=== PATIENT | male | born 1935 | race Caucasian/White ===

== ENCOUNTER 2017-10-21 06:48 | Outpatient (CLI) | payer MEDICARE, BC ==
[~2017-10-21] VITALS: Ht 167.6 cm; Wt 98.0 kg
[~2017-10-21 06:48] MED LIST: ADV50250 IH; ALBU18HF2 IH; ALD25T PO; ALLO100T PO; ATOR10TA87 PO; ATR0.5NEB IH; BENA20TA82 PO; DABI150C PO; FURO80TA87 PO; IND25C PO; POTA20TA84 PO; PRED20TA PO; SOTA80TA73 PO
[2017-10-21 07:26] LABS: TOTAL HEMOGLOBIN 14.1 G/dl (14.0-18.0)
[2017-10-21] MEDS ORDERED: albuterol 2.5 MG/3 ML nebule NEB ONE (07:40)
== END 2017-10-21 23:59 | disposition home or self-care (01) ==
LOC: RT 06:48
PROVIDERS: ATTEND Internal Medicine Pulmonary Disease
DX: J44.9 Chronic obstructive pulmonary disease, unspecified (principal); I10 Essential (primary) hypertension; Z88.0 Allergy status to penicillin; Z87.891 Personal history of nicotine dependence; Z79.899 Other long term (current) drug therapy
CPT/HCPCS: 85018; 94060; 94727; 94729; 94760; A6222; A6446; J7030

== ENCOUNTER 2017-11-12 08:33 | Outpatient (CLI) | payer MEDICARE, BC | END 2017-11-12 23:59 | disposition home or self-care (01) | LOC: RT 08:33 | PROVIDERS: ATTEND Internal Medicine Pulmonary Disease | DX: J44.9 Chronic obstructive pulmonary disease, unspecified (principal); I10 Essential (primary) hypertension; Z87.891 Personal history of nicotine dependence; Z85.828 Personal history of other malignant neoplasm of skin | CPT/HCPCS: 94618 ==

== ENCOUNTER 2018-03-31 10:38 | Emergency (ER) | payer MEDICARE, BC ==
[~2018-03-31] VITALS: Ht 167.6 cm; Wt 99.0 kg
[~2018-03-31 10:38] MED LIST changes: -ALD25T PO; +AMLO2.5T2 PO; -ATR0.5NEB IH; +METF500T PO; +MONT10TA21 PO; -POTA20TA84 PO; -PRED20TA PO
[2018-03-31 11:19] LABS: BASOPHILS # (AUTO) 0.1 X10'3 (0-0.2); BASOPHILS % (AUTO) 0.7 % (0-1); EOSINOPHILS # (AUTO) 0.1 X10'3 (0-0.9); EOSINOPHILS % (AUTO) 1.2 % (0-6); HEMATOCRIT 37.6 % (42.0-52.0); HEMOGLOBIN 12.7 g/dl (14.0-17.9); LYMPHOCYTES # (AUTO) 1.1 X10'3 (1.1-4.8); LYMPHOCYTES % (AUTO) 12.3 % (21-51); MEAN CORPUSCULAR HGB CONC 33.8 g/dL (33.0-36.5); MEAN CORPUSCULAR VOLUME 97.4 FL (78-98); MEAN PLATELET VOLUME 6.3 FL (7.4-10.4); MONOCYTES % (AUTO) 10.8 % (2-12); NEUTROPHILS # (AUTO) 6.9 X10'3 (1.8-7.7); PLATELET COUNT 216 X10'3 (140-440); RED BLOOD COUNT 3.86 X10'6 (4.70-6.10); RED CELL DISTRIBUTION WIDTH 14.7 % (11.5-14.5); WHITE BLOOD COUNT 9.2 X10'3 (4.5-11.0)
[2018-03-31 11:34] LABS: INR 1.5 INR; PARTIAL THROMBOPLASTIN TIME 49 SECONDS (22-32); PROTHROMBIN TIME 14.7 SECONDS (9.0-12.0)
[2018-03-31 11:35] LABS: ALANINE AMINOTRANSFERASE 25 U/L (12-78); ALBUMIN 3.4 G/DL (3.4-5.0); ALBUMIN/GLOBULIN RATIO 0.8 (1.1-1.5); ALKALINE PHOSPHATASE 106 IU/L (46-116); ANION GAP 9 (8-16); ASPARTATE AMINO TRANSFERASE 23 U/L (10-37); BILIRUBIN,TOTAL 1.1 MG/DL (0.1-1.0); BLOOD UREA NITROGEN 19 MG/DL (7-18); BUN/CREATININE RATIO 18.4 (5.4-32.0); CALCIUM 9.1 MG/DL (8.5-10.1); CHLORIDE 92 MMOL/L (99-107); CREATININE 1.03 MG/DL (0.60-1.10); GLUCOSE 145 MG/DL (70-104); POTASSIUM 3.4 MMOL/L (3.5-5.1); SODIUM 134 MMOL/L (135-145); TOTAL CARBON DIOXIDE 33.3 MMOL/L (24-32); TOTAL PROTEIN 7.6 G/DL (6.4-8.2); eGFR 69 ML/MIN
--- NOTE | 2018-03-31 12:14 | NUR ---
ASSUMED CARE OF PT FROM KARINA BUNDY
--- NOTE | 2018-03-31 13:10 | NUR ---
PT IS RESTING QUIETLY ON CHAIR, FAMILY AT BEDSIDE, WAITING FOR 2ND TROPONIN LEVEL, LEFT LOWER CHEST PAIN 2/10 "SHARP", INCREASES WITH DEEP BREATH AND MOVEMENT, NO SOB, ON 2LITERS NASAL CANNULA,
[2018-03-31 15:32] VITALS: BP 177/92
== END 2018-03-31 15:33 | disposition home or self-care (01) ==
LOC: ER 10:38
DX: R07.1 Chest pain on breathing (principal); I50.9 Heart failure, unspecified; J44.9 Chronic obstructive pulmonary disease, unspecified; Z95.0 Presence of cardiac pacemaker; Z98.890 Other specified postprocedural states; Z88.0 Allergy status to penicillin; Z79.899 Other long term (current) drug therapy; Z79.01 Long term (current) use of anticoagulants
CPT/HCPCS: 36415; 71045; 80053; 82948; 83880; 84484; 85025; 85610; 85730; 93005; 99284

== ENCOUNTER 2018-07-08 06:00 | Day surgery (SDC) | payer MEDICARE, BC ==
[2018-07-07 13:21] LABS: BASOPHILS # (AUTO) 0.1 X10'3 (0-0.2); BASOPHILS % (AUTO) 0.7 % (0-1); EOSINOPHILS # (AUTO) 0.2 X10'3 (0-0.9); EOSINOPHILS % (AUTO) 2.4 % (0-6); HEMATOCRIT 34.5 % (42.0-52.0); HEMOGLOBIN 11.7 g/dl (14.0-17.9); LYMPHOCYTES # (AUTO) 1.4 X10'3 (1.1-4.8); LYMPHOCYTES % (AUTO) 18.1 % (21-51); MEAN CORPUSCULAR HEMOGLOBIN 33.3 PG (27.0-31.0); MEAN CORPUSCULAR VOLUME 97.9 FL (78-98); MEAN PLATELET VOLUME 6.8 FL (7.4-10.4); MONOCYTES % (AUTO) 13.4 % (2-12); NEUTROPHILS # (AUTO) 4.9 X10'3 (1.8-7.7); NEUTROPHILS % (AUTO) 65.4 % (42-75); PLATELET COUNT 171 X10'3 (140-440); RED BLOOD COUNT 3.52 X10'6 (4.70-6.10); RED CELL DISTRIBUTION WIDTH 14.6 % (11.5-14.5); WHITE BLOOD COUNT 7.6 X10'3 (4.5-11.0)
[2018-07-07 13:28] LABS: ALBUMIN 3.1 G/DL (3.4-5.0); ANION GAP 5 (8-16); BLOOD UREA NITROGEN 13 MG/DL (7-18); BUN/CREATININE RATIO 15.1 (5.4-32.0); CALCIUM 9.2 MG/DL (8.5-10.1); CHLORIDE 96 MMOL/L (99-107); CREATININE 0.86 MG/DL (0.60-1.10); GLUCOSE 112 MG/DL (70-104); MAGNESIUM 1.3 MG/DL (1.5-2.4); POTASSIUM 3.9 MMOL/L (3.5-5.1); SODIUM 137 MMOL/L (135-145); TOTAL CARBON DIOXIDE 35.8 MMOL/L (24-32); eGFR 85 ML/MIN
[2018-07-07 13:33] LABS: INR 1.3 INR; PARTIAL THROMBOPLASTIN TIME 33 SECONDS (22-32)
[2018-07-08] VITALS (11 sets, daily range): BP systolic 110–157; BP diastolic 57–89
[~2018-07-08] VITALS: Ht 167.6 cm; Wt 97.7 kg
[2018-07-08] MEDS ORDERED: normal saline 1000ml 1,000 ML IV SCH (06:25)
[2018-07-08] MEDS ORDERED: ceFAZolin 2gm in dextrose, iso 100 ML IV ONE (06:30)
[2018-07-08] MEDS ORDERED: midazolam 2 mg/2 ml injection ONE ×2 (07:48→08:45)
[2018-07-08] MEDS ORDERED: lidocaine 1%/epinephrine 1:100,000 injection 50ml vial ONE (07:48)
[2018-07-08] MEDS ORDERED: fentaNYL/PF 50MCG/1 ML 2ML syringe ONE ×2 (07:48→09:11)
[2018-07-08] MEDS ORDERED: clindamycin-Cleocin 900mg/D5W 50 ML IV ONE (08:10)
[2018-07-08] MEDS ORDERED: clindamycin phosphate 150mg/ml inj. ONE (08:13)
[2018-07-08] MEDS ORDERED: HYDROcodone/acetaminophen 10/325mg tab PO PRN (10:05)
[2018-07-08] MEDS ORDERED: HYDROcodone/acetaminophen 5mg/325mg tablet PO PRN (10:05)
== END 2018-07-08 14:40 | disposition home or self-care (01) ==
LOC: SSTAY O 06:00
PROVIDERS: ATTEND Internal Medicine Cardiovascular Disease
DX: Z45.010 Encounter for checking and testing of cardiac pacemaker pulse generator [battery] (principal); I25.10 Atherosclerotic heart disease of native coronary artery without angina pectoris; I11.0 Hypertensive heart disease with heart failure; I50.30 Unspecified diastolic (congestive) heart failure; E78.5 Hyperlipidemia, unspecified; G47.30 Sleep apnea, unspecified; I48.0 Paroxysmal atrial fibrillation
CPT/HCPCS: 33228; 36415; 80048; 83735; 85025; 85610; 85730; 93005; 99152; 99153; C1785; J0690; J2250; J3010; J3490; A6449; J7030

== ENCOUNTER 2018-10-28 06:39 | Inpatient (IN) | payer MEDICARE, BC ==
[~2018-10-28] VITALS: Ht 167.6 cm; Wt 99.5 kg
[2018-10-28 07:43] LABS: BASOPHILS # (AUTO) 0.1 X10'3 (0-0.2); BASOPHILS % (AUTO) 0.4 % (0-1); EOSINOPHILS % (AUTO) 0.1 % (0-6); HEMATOCRIT 32.8 % (42.0-52.0); HEMOGLOBIN 10.9 g/dl (14.0-17.9); LYMPHOCYTES % (AUTO) 5.6 % (21-51); MEAN CORPUSCULAR HEMOGLOBIN 33.2 PG (27.0-31.0); MEAN CORPUSCULAR HGB CONC 33.2 g/dL (33.0-36.5); MEAN CORPUSCULAR VOLUME 100.1 FL (78-98); MEAN PLATELET VOLUME 6.8 FL (7.4-10.4); MONOCYTES # (AUTO) 1.2 X10'3 (0-0.9); MONOCYTES % (AUTO) 6.8 % (2-12); NEUTROPHILS % (AUTO) 87.1 % (42-75); PLATELET COUNT 149 X10'3 (140-440); RED BLOOD COUNT 3.27 X10'6 (4.70-6.10); RED CELL DISTRIBUTION WIDTH 15.8 % (11.5-14.5); WHITE BLOOD COUNT 18.3 X10'3 (4.5-11.0)
[2018-10-28 07:54] LABS: ALANINE AMINOTRANSFERASE 34 U/L (12-78); ALBUMIN 2.9 G/DL (3.4-5.0); ALBUMIN/GLOBULIN RATIO 0.6 (1.1-1.5); ALKALINE PHOSPHATASE 142 IU/L (46-116); ANION GAP 5 (8-16); ASPARTATE AMINO TRANSFERASE 25 U/L (10-37); BILIRUBIN,TOTAL 1.7 MG/DL (0.1-1.0); BLOOD UREA NITROGEN 26 MG/DL (7-18); BUN/CREATININE RATIO 19.4 (5.4-32.0); CHLORIDE 98 MMOL/L (99-107); CREATININE 1.34 MG/DL (0.60-1.10); GLUCOSE 174 MG/DL (70-104); SODIUM 136 MMOL/L (135-145); TOTAL CARBON DIOXIDE 32.6 MMOL/L (24-32); TOTAL PROTEIN 7.4 G/DL (6.4-8.2); eGFR 51 ML/MIN
[2018-10-28 07:56] LABS: PARTIAL THROMBOPLASTIN TIME 59 SECONDS (22-32)
[2018-10-28] MEDS ORDERED: TIOT18CA3 INH (07:57)
[2018-10-28 08:01] LABS: MAGNESIUM 1.5 MG/DL (1.5-2.4)
--- NOTE | 2018-10-28 08:12 | NUR ---
DR GREWAL NOTIFIED OF PT ELEVATED WBC AND LACTIC, ASKED IF HE WILL BE ORDERING FLUIDS AND ABX, ALSO WALKED TO XRAY CHEST XRAY HAS NOT BEEN COMPLETED AT THIS TIME, NOTIFIED STEPHANIE CHARGE NURSE
[2018-10-28] MEDS ORDERED: CefTRIAXone 2gm/D5W 50ml 50 ML IV ONE (08:15)
[2018-10-28] MEDS ORDERED: vancomycin/NS 1 GM ADD-VANTAGE 250 ML IV ONE (08:15)
[2018-10-28 08:20] LABS: PLATELET ESTIMATE NORMAL; TOTAL CELLS COUNTED 100
--- NOTE | 2018-10-28 08:28 | NUR ---
DR GREWAL NOTIFIED OF PT ALLERGY/ADVERSE REACTION TO PENICILLINS, STATES OK TO GIVE PT ROCEPHEN ORDERED, ALSO STATES HE WILL NOT BE GIVING FLUIDS FOR SEPSIS DUE TO PT HX OF CHF AND EDEMA
[2018-10-28] MEDS ORDERED: FLUT1DIS INH (08:37)
--- NOTE | 2018-10-28 09:34 | NUR ---
VASCULAR AT BEDSIDE
--- NOTE | 2018-10-28 11:00 | NUR ---
Received patient report from ER nurse Mary Ellen BUNDY. Awaiting arrival to room 358B.
[2018-10-28 11:44] VITALS: BP 147/91
[2018-10-28] MEDS ORDERED: MESSAGE TO PHARMACY PO ONE (12:20)
[2018-10-28] MEDS ORDERED: insulin Lispro (HumaLOG) vial - multi-dose SQ SCH (12:20)
[2018-10-28] MEDS ORDERED: dextrose ORAL solution 15 GM/59 ML bottle PO PRN ×2 (12:20)
[2018-10-28] MEDS ORDERED: glucagon, human recombinant 1mg kit SUBCUT PRN (12:20)
[2018-10-28] MEDS ORDERED: dextrose 50%-water 50ml dispensing syringe IV PRN ×2 (12:20)
--- NOTE | 2018-10-28 12:24 | NUR ---
Dr. Ernst paged regarding med rec needs addressed. MD to see patient and will address.
[2018-10-28 12:41] LABS: HEMOGLOBIN A1C 6.4 % (4.5-6.2)
[2018-10-28] MEDS ORDERED: ipratropium 0.5 MG/2.5ML nebule IH PRN (16:10)
[2018-10-28] MEDS: amLODIPine 2.5mg tablet PO SCH (16:37)
[2018-10-28] MEDS: montelukast 10mg tablet PO SCH (16:37)
[2018-10-28] MEDS: piperacillin/tazo 3.375gm/50ml 50 ML IV SCH (16:53)
--- NOTE | 2018-10-28 18:28 | NUR ---
Problems reprioritized. Patient report given, questions answered & plan of care reviewed with Rose BUNDY.
--- NOTE | 2018-10-28 18:30 | NUR ---
Patient in room [facility] 358. I have received report from GREGOR Bullock and had the opportunity to ask questions and assume patient care. Addendum: 10/28/18 at 1914 by Zurdo Colon RN Amended: Links added.
[2018-10-28 19:30] VITALS: BP 134/86
[2018-10-28] MEDS ORDERED: VANCOmycin 1250MG/NS 250ml Bag 250 ML IV SCH (20:00)
--- NOTE | 2018-10-28 20:00 | NUR ---
Pt c/o sob, req oxygen, 1l n/c applied for comfort, sat 90 to 91 on r/a, 96% on 1 l. repositioned hob elevated with relief. Addendum: 10/29/18 at 0108 by Zurdo Colon RN Amended: Links added.
[2018-10-28] MEDS: furosemide 10 MG/1 ML 10ml inj IV SCH (20:07)
[2018-10-28] MEDS: sotalol 80mg tablet PO SCH (20:08)
[2018-10-28] MEDS: dabigatran 150mg capsule PO SCH (20:19)
[2018-10-28] MEDS: atorvastatin 10mg tablet PO SCH (20:20)
[2018-10-28] MEDS: insulin glargine (Lantus) pen - multi-dose SQ SCH (21:00)
--- NOTE | 2018-10-28 22:20 | NUR ---
bed bath, linen change, lotion to back and legs. leonora well. Addendum: 10/28/18 at 2221 by Zurdo Colon RN Amended: Links added.
[2018-10-29] MEDS: piperacillin/tazo 3.375gm/50ml 50 ML IV SCH ×3 (00:10→16:55)
[2018-10-29 00:39] VITALS: BP 144/84
[2018-10-29 04:14] LABS: BASOPHILS # (AUTO) 0.1 X10'3 (0-0.2); BASOPHILS % (AUTO) 0.3 % (0-1); EOSINOPHILS % (AUTO) 0 % (0-6); HEMATOCRIT 31.5 % (42.0-52.0); HEMOGLOBIN 10.5 g/dl (14.0-17.9); LYMPHOCYTES % (AUTO) 5.8 % (21-51); MEAN CORPUSCULAR HEMOGLOBIN 33.7 PG (27.0-31.0); MEAN CORPUSCULAR HGB CONC 33.4 g/dL (33.0-36.5); MEAN PLATELET VOLUME 7.2 FL (7.4-10.4); MONOCYTES # (AUTO) 1.4 X10'3 (0-0.9); MONOCYTES % (AUTO) 8.4 % (2-12); NEUTROPHILS # (AUTO) 14.2 X10'3 (1.8-7.7); NEUTROPHILS % (AUTO) 85.5 % (42-75); PLATELET COUNT 141 X10'3 (140-440); RED BLOOD COUNT 3.12 X10'6 (4.70-6.10); RED CELL DISTRIBUTION WIDTH 15.7 % (11.5-14.5); WHITE BLOOD COUNT 16.6 X10'3 (4.5-11.0)
[2018-10-29 04:21] LABS: ALBUMIN 2.7 G/DL (3.4-5.0); ANION GAP 6 (8-16); BLOOD UREA NITROGEN 28 MG/DL (7-18); CALCIUM 8.6 MG/DL (8.5-10.1); CHLORIDE 98 MMOL/L (99-107); CREATININE 1.12 MG/DL (0.60-1.10); GLUCOSE 122 MG/DL (70-104); POTASSIUM 3.2 MMOL/L (3.5-5.1); SODIUM 137 MMOL/L (135-145); TOTAL CARBON DIOXIDE 32.9 MMOL/L (24-32); eGFR 62 ML/MIN
--- NOTE | 2018-10-29 06:34 | NUR ---
Problems reprioritized. Patient report given, questions answered & plan of care reviewed with RN. PERLA LONGORIA DRESSING CHANGED. Addendum: 10/29/18 at 0635 by Zurdo Colon RN Amended: Links added.
[2018-10-29] MEDS ORDERED: potassium Cl 20 mEq SR tablet PO PRN (07:00)
[2018-10-29] MEDS ORDERED: magnesium Cl slow-release 64mg tablet PO PRN (07:00)
[2018-10-29] MEDS ORDERED: magnesium 2GM in 50ml NS 50 ML IV PRN (07:00)
[2018-10-29] MEDS ORDERED: potassium CL 10mEq/100ml bag 100 ML IV PRN (07:00)
[2018-10-29] MEDS ORDERED: magnesium 4gm in 100ml NS 100 ML IV PRN (07:00)
[2018-10-29 07:28] VITALS: BP_SYST 63
[2018-10-29] MEDS: amLODIPine 2.5mg tablet PO SCH (07:48)
[2018-10-29] MEDS: dabigatran 150mg capsule PO SCH ×2 (07:48→20:28)
[2018-10-29] MEDS: allopurinol 100mg tablet PO SCH (07:48)
[2018-10-29] MEDS: montelukast 10mg tablet PO SCH (07:48)
[2018-10-29] MEDS: sotalol 80mg tablet PO SCH ×2 (07:49→20:26)
[2018-10-29] MEDS: lisinopril 20mg tablet PO SCH (07:49)
[2018-10-29] MEDS: furosemide 10 MG/1 ML 10ml inj IV SCH (07:50)
[2018-10-29] MEDS: potassium Cl 20 mEq SR tablet PO PRN ×3 (07:53→21:29)
[2018-10-29] MEDS: VANCOmycin 1250MG/NS 250ml Bag 250 ML IV SCH (09:28)
[2018-10-29 11:54] VITALS: BP 152/95
--- NOTE | 2018-10-29 18:19 | NUR ---
Problems reprioritized. Patient report given, questions answered & plan of care reviewed with radha gibbs.
--- NOTE | 2018-10-29 18:30 | NUR ---
Patient in room [facility] 358. I have received report from SWATI BUNDY and had the opportunity to ask questions and assume patient care.
[2018-10-29 20:00] VITALS: BP 126/75
[2018-10-29] MEDS: lactobacillus rhamnosus 10,000 MMU CELLS/CAPSULE PO SCH (20:27)
[2018-10-29] MEDS: atorvastatin 10mg tablet PO SCH (20:27)
[2018-10-29] MEDS: insulin glargine (Lantus) pen - multi-dose SQ SCH (21:00)
[2018-10-30] VITALS: BP 145/91
[2018-10-30] MEDS: piperacillin/tazo 3.375gm/50ml 50 ML IV SCH ×2 (01:14→08:25)
--- NOTE | 2018-10-30 06:28 | NUR ---
Problems reprioritized. Patient report given, questions answered & plan of care reviewed with MELODY BUNDY.
[2018-10-30 06:41] LABS: BASOPHILS % (AUTO) 0.2 % (0-1); EOSINOPHILS % (AUTO) 0.4 % (0-6); HEMATOCRIT 32.5 % (42.0-52.0); HEMOGLOBIN 10.9 g/dl (14.0-17.9); LYMPHOCYTES # (AUTO) 1.2 X10'3 (1.1-4.8); LYMPHOCYTES % (AUTO) 11.5 % (21-51); MEAN CORPUSCULAR HEMOGLOBIN 33.9 PG (27.0-31.0); MEAN CORPUSCULAR HGB CONC 33.6 g/dL (33.0-36.5); MEAN PLATELET VOLUME 7.4 FL (7.4-10.4); MONOCYTES # (AUTO) 1.2 X10'3 (0-0.9); MONOCYTES % (AUTO) 11.2 % (2-12); NEUTROPHILS % (AUTO) 76.7 % (42-75); PLATELET COUNT 160 X10'3 (140-440); RED BLOOD COUNT 3.22 X10'6 (4.70-6.10); WHITE BLOOD COUNT 10.5 X10'3 (4.5-11.0)
[2018-10-30 06:56] LABS: ALBUMIN 2.7 G/DL (3.4-5.0); ANION GAP 9 (8-16); BLOOD UREA NITROGEN 30 MG/DL (7-18); BUN/CREATININE RATIO 27.8 (5.4-32.0); CALCIUM 8.9 MG/DL (8.5-10.1); CHLORIDE 101 MMOL/L (99-107); CREATININE 1.08 MG/DL (0.60-1.10); GLUCOSE 98 MG/DL (70-104); POTASSIUM 3.5 MMOL/L (3.5-5.1); SODIUM 142 MMOL/L (135-145); TOTAL CARBON DIOXIDE 31.9 MMOL/L (24-32); eGFR 65 ML/MIN
[2018-10-30 07:00] VITALS: BP 145/77
--- NOTE | 2018-10-30 07:00 | NUR ---
Patient in room [facility] 358. I have received report from COY BUNDY and had the opportunity to ask questions and assume patient care.
[2018-10-30] MEDS ORDERED: furosemide 10 MG/1 ML 10ml inj IV SCH (08:00)
[2018-10-30 08:24] VITALS: BP_SYST 145
[2018-10-30] MEDS: lactobacillus rhamnosus 10,000 MMU CELLS/CAPSULE PO SCH (08:24)
[2018-10-30] MEDS: montelukast 10mg tablet PO SCH (08:24)
[2018-10-30] MEDS: allopurinol 100mg tablet PO SCH (08:24)
[2018-10-30] MEDS: lisinopril 20mg tablet PO SCH (08:24)
[2018-10-30] MEDS: sotalol 80mg tablet PO SCH (08:25)
[2018-10-30] MEDS: VANCOmycin 1250MG/NS 250ml Bag 250 ML IV SCH (09:00)
[2018-10-30] MEDS ORDERED: CEPH500C2 PO (09:37)
[2018-10-30] MEDS: dabigatran 150mg capsule PO SCH (10:25)
--- NOTE | 2018-10-30 11:29 | NUR ---
Patient seen by dr andujar is for discharge. all discharge instructions given to patient. patient appears stable for DC. DC home via private car with friend 1130.
[2018-10-31] MEDS ORDERED: VANCOMYCIN LEVEL IV ONE (08:30)
== END 2018-10-30 11:22 | disposition home or self-care (01) | DRG 871 ==
LOC: ER 06:40 → SUR 3N 10:52
PROVIDERS: ADMIT Internal Medicine; ATTEND Internal Medicine
DX: A41.9 Sepsis, unspecified organism (principal); I50.33 Acute on chronic diastolic (congestive) heart failure; L03.116 Cellulitis of left lower limb; M10.9 Gout, unspecified; E11.9 Type 2 diabetes mellitus without complications; E78.5 Hyperlipidemia, unspecified; I11.0 Hypertensive heart disease with heart failure; I25.10 Atherosclerotic heart disease of native coronary artery without angina pectoris; I48.2 Chronic atrial fibrillation; E87.6 Hypokalemia; I87.2 Venous insufficiency (chronic) (peripheral); J44.9 Chronic obstructive pulmonary disease, unspecified; Z87.891 Personal history of nicotine dependence; Z95.0 Presence of cardiac pacemaker; Z79.84 Long term (current) use of oral hypoglycemic drugs; Z88.0 Allergy status to penicillin
CPT/HCPCS: 36415; 71045; 80048; 80053; 82948; 83036; 83605; 83735; 83880; 84145; 85025; 85610; 85730; 87040; 87081; 93005; 93971; 94760; 96365; 96367; 97116; 97161; 97530; 99285; G0378; J0696; J1815; J1940; J2543; J3370

== ENCOUNTER 2019-01-01 16:44 | Inpatient (IN) | payer MEDICARE, BC ==
[~2019-01-01] VITALS: Ht 170.2 cm; Wt 97.0 kg
[~2019-01-01 16:44] MED LIST changes: -ADV50250 IH; -AMLO2.5T2 PO; +FLUT1DIS INH; -IND25C PO; +TIOT18CA3 INH
[2019-01-01] MEDS ORDERED: azithromycin/NS 500mg/250ml 250 ML IV ONE (17:05)
[2019-01-01] MEDS ORDERED: CefTRIAXone/D5W-Rocephin 1gm 50 ML IV ONE (17:05)
[2019-01-01] MEDS ORDERED: acetaminophen 325mg tablet PO STA (17:05)
--- NOTE | 2019-01-01 17:05 | NUR ---
DR VICTOR AT BEDSIDE TO EVAL PT, PT IS RESTING QUIETLY, PLACED ON 2 LITERS NASAL CANNULA AT 02 PULSE OX WAS 88% ON ROOM AIR, INCREASED TO 93% ON 2 LITERS 02, PT CAME WITH WALLET, NECKLACE, CELL PHONE, SWEAT SHIRT, TANK TOP, $152.00 (DOESN'T WANT LOCKED WITH SECURITY)
--- NOTE | 2019-01-01 17:11 | NUR ---
ALSO HAS ONE HEARING AID
[2019-01-01] MEDS ORDERED: methylPREDNISolone sod succ 125mg/2ml vial IV ONE (18:10)
[2019-01-01] MEDS ORDERED: ipratropium/albuterol 3ml nebule NEB ONE (18:10)
[2019-01-01 18:18] LABS: BASOPHILS % (AUTO) 0.1 % (0-1); EOSINOPHILS % (AUTO) 0.1 % (0-6); HEMATOCRIT 33.3 % (42.0-52.0); LYMPHOCYTES # (AUTO) 0.7 X10'3 (1.1-4.8); LYMPHOCYTES % (AUTO) 2.9 % (21-51); MEAN CORPUSCULAR HEMOGLOBIN 31.6 PG (27.0-31.0); MEAN CORPUSCULAR HGB CONC 33.2 g/dL (33.0-36.5); MEAN CORPUSCULAR VOLUME 95.2 FL (78-98); MEAN PLATELET VOLUME 6.9 FL (7.4-10.4); MONOCYTES # (AUTO) 1.8 X10'3 (0-0.9); MONOCYTES % (AUTO) 7.4 % (2-12); NEUTROPHILS # (AUTO) 22.5 X10'3 (1.8-7.7); NEUTROPHILS % (AUTO) 89.5 % (42-75); PLATELET COUNT 216 X10'3 (140-440); RED BLOOD COUNT 3.49 X10'6 (4.70-6.10); RED CELL DISTRIBUTION WIDTH 15.8 % (11.5-14.5)
[2019-01-01 18:20] LABS: WHITE BLOOD COUNT 25.1 X10'3 (4.5-11.0)
[2019-01-01 18:29] LABS: PARTIAL THROMBOPLASTIN TIME 40 SECONDS (22-32)
[2019-01-01 18:35] LABS: ALANINE AMINOTRANSFERASE 23 U/L (12-78); ALBUMIN 2.8 G/DL (3.4-5.0); ALBUMIN/GLOBULIN RATIO 0.7 (1.1-1.5); ALKALINE PHOSPHATASE 148 IU/L (46-116); ANION GAP 6 (8-16); ASPARTATE AMINO TRANSFERASE 30 U/L (10-37); BILIRUBIN,TOTAL 1.6 MG/DL (0.1-1.0); BLOOD UREA NITROGEN 22 MG/DL (7-18); BUN/CREATININE RATIO 15.5 (5.4-32.0); CHLORIDE 99 MMOL/L (99-107); CREATININE 1.42 MG/DL (0.60-1.10); GLUCOSE 146 MG/DL (70-104); SODIUM 137 MMOL/L (135-145); eGFR 47 ML/MIN
[2019-01-01 18:56] LABS: ANISOCYTOSIS 1+; PLATELET ESTIMATE NORMAL; TOTAL CELLS COUNTED 100
[2019-01-01 19:01] LABS: CLARITY,URINE CLEAR (Clear); COLOR,URINE YELLOW (Yellow); GLUCOSE, URINE NEGATIVE (Neg); KETONES,URINE TRACE mg/dl (Neg); LEUKOCYTE ESTERASE ,URINE NEGATIVE (Neg); NITRITES, URINE NEGATIVE (Neg); OCCULT BLOOD,URINE TRACE-INTACT (Neg); PROTEIN,URINE 100 mg/dl (Neg); UROBILINOGEN,URINE >=8.0 E.U/dL (0.2-1.0)
[2019-01-01 19:02] LABS: UA COLLECTION TYPE NON-SPECIFIED
[2019-01-01 19:09] LABS: BACTERIA,URINE FEW /HPF (Neg); RBC,URINE 0-2 /HPF (0-2); SQUAMOUS EPITHELIAL CELL,UR FEW /LPF (FEW); WBC,URINE NONE SEEN /HPF (0-4)
[2019-01-01] MEDS ORDERED: normal saline 1000ml 1,000 ML IV SCH (19:54)
[2019-01-01] MEDS ORDERED: magnesium hydroxide 30ml (MOM) UD suspension PO PRN (19:55)
[2019-01-01] MEDS ORDERED: acetaminophen 325mg tablet PO PRN (19:55)
[2019-01-01] MEDS ORDERED: mag hydrox/Alum hydrox/simeth 30ml oral suspension PO PRN (19:55)
[2019-01-01] MEDS ORDERED: potassium Cl 20 mEq SR tablet PO PRN ×2 (19:55)
[2019-01-01] MEDS ORDERED: ondansetron/PF 4mg/2ml inj IV PRN (19:55)
[2019-01-01] MEDS ORDERED: MESSAGE TO PHARMACY PO ONE (20:00)
[2019-01-01] MEDS ORDERED: glucagon, human recombinant 1mg kit SUBCUT PRN (20:00)
[2019-01-01] MEDS ORDERED: insulin Lispro (HumaLOG) vial - multi-dose SQ SCH (20:00)
[2019-01-01] MEDS ORDERED: heparin, porcine 5000 units/ml vial SQ SCH (20:00)
[2019-01-01] MEDS ORDERED: dextrose 50%-water 50ml dispensing syringe IV PRN ×2 (20:00)
[2019-01-01] MEDS ORDERED: dextrose ORAL solution 15 GM/59 ML bottle PO PRN ×2 (20:00)
[2019-01-01] MEDS ORDERED: GABA-532 PO (20:24)
[2019-01-01] MEDS ORDERED: AMLO2.5T2 PO (20:27)
[2019-01-01 21:00] VITALS: BP 119/77
[2019-01-01] MEDS ORDERED: insulin glargine (Lantus) pen - multi-dose SQ SCH (21:00)
--- NOTE | 2019-01-01 21:00 | NUR ---
Patient in room PCU 3023. I have received report from Carley BUNDY and had the opportunity to ask questions and assume patient care. Came with all personal affects, friend Tony at bedside, transferred to bed from [facility] and is now comfortable; patient is still on 2L oxygen nasal cannula.
[2019-01-01] MEDS ORDERED: albuterol 2.5 MG/3 ML nebule NEB PRN (21:25)
--- NOTE | 2019-01-01 23:00 | NUR ---
Incomplete DART Unable to fully DART patient. Patient is falling asleep while questions are being asked. Will pass on to AM shift.
[2019-01-02 02:00] VITALS: BP 123/64
[2019-01-02] MEDS: ipratropium/albuterol 3ml nebule NEB SCH ×3 (03:19→13:58)
[2019-01-02 05:35] LABS: BASOPHILS % (AUTO) 0 % (0-1); EOSINOPHILS % (AUTO) 0 % (0-6); HEMATOCRIT 32.2 % (42.0-52.0); HEMOGLOBIN 10.6 g/dl (14.0-17.9); LYMPHOCYTES # (AUTO) 0.7 X10'3 (1.1-4.8); LYMPHOCYTES % (AUTO) 2.8 % (21-51); MEAN CORPUSCULAR HEMOGLOBIN 31.9 PG (27.0-31.0); MEAN CORPUSCULAR HGB CONC 32.9 g/dL (33.0-36.5); MEAN CORPUSCULAR VOLUME 97.1 FL (78-98); MEAN PLATELET VOLUME 7.1 FL (7.4-10.4); MONOCYTES # (AUTO) 1.1 X10'3 (0-0.9); MONOCYTES % (AUTO) 4.3 % (2-12); NEUTROPHILS # (AUTO) 23.7 X10'3 (1.8-7.7); NEUTROPHILS % (AUTO) 92.9 % (42-75); PLATELET COUNT 202 X10'3 (140-440); RED BLOOD COUNT 3.32 X10'6 (4.70-6.10); RED CELL DISTRIBUTION WIDTH 15.6 % (11.5-14.5)
[2019-01-02 05:49] LABS: WHITE BLOOD COUNT 25.6 X10'3 (4.5-11.0)
[2019-01-02 05:56] LABS: ALANINE AMINOTRANSFERASE 21 U/L (12-78); ALBUMIN 2.6 G/DL (3.4-5.0); ALBUMIN/GLOBULIN RATIO 0.6 (1.1-1.5); ALKALINE PHOSPHATASE 132 IU/L (46-116); ANION GAP 3 (8-16); ASPARTATE AMINO TRANSFERASE 23 U/L (10-37); BILIRUBIN,TOTAL 0.9 MG/DL (0.1-1.0); BLOOD UREA NITROGEN 28 MG/DL (7-18); BUN/CREATININE RATIO 19.3 (5.4-32.0); CALCIUM 9.6 MG/DL (8.5-10.1); CHLORIDE 99 MMOL/L (99-107); CREATININE 1.45 MG/DL (0.60-1.10); GLUCOSE 201 MG/DL (70-104); POTASSIUM 4.3 MMOL/L (3.5-5.1); SODIUM 136 MMOL/L (135-145); TOTAL CARBON DIOXIDE 33.7 MMOL/L (24-32); TOTAL PROTEIN 7.1 G/DL (6.4-8.2); eGFR 46 ML/MIN
--- NOTE | 2019-01-02 06:19 | NUR ---
Patient in room PCU 3023. I have received report from GREGOR Rzea and had the opportunity to ask questions and assume patient care.
--- NOTE | 2019-01-02 06:44 | NUR ---
Problems reprioritized. Patient report given, questions answered & plan of care reviewed with Sharon BUNDY and Deya BUNDY.
[2019-01-02 06:45] LABS: PLATELET ESTIMATE NORMAL; TOTAL CELLS COUNTED 100
[2019-01-02 06:46] LABS: ANISOCYTOSIS 1+; POLYCHROMASIA FEW; SCHISTOCYTES FEW
[2019-01-02 07:00] VITALS: BP 118/71
[2019-01-02] MEDS ORDERED: furosemide 40mg tablet PO SCH (08:00)
[2019-01-02] MEDS ORDERED: allopurinol 100mg tablet PO SCH (08:00)
[2019-01-02] MEDS ORDERED: azithromycin 250mg tablet PO SCH (08:00)
[2019-01-02] MEDS ORDERED: CefTRIAXone/D5W-Rocephin 1gm 50 ML IV SCH (08:00)
[2019-01-02] MEDS ORDERED: gabapentin 300mg capsule PO SCH (08:00)
[2019-01-02] MEDS ORDERED: dabigatran 150mg capsule PO SCH (08:00)
[2019-01-02] MEDS ORDERED: K and/or MAG REPLACEMENT MC SCH (08:00)
[2019-01-02] MEDS ORDERED: sotalol 80mg tablet PO SCH (08:00)
[2019-01-02] MEDS ORDERED: lisinopril 10 MG tablet PO SCH (08:00)
[2019-01-02] MEDS ORDERED: amLODIPine 2.5mg tablet PO SCH (08:00)
[2019-01-02] MEDS ORDERED: LEVO750T21 PO (08:43)
[2019-01-02] MEDS ORDERED: budesonide 0.5mg/2ml UD nebule IH SCH (09:00)
[2019-01-02 11:00] VITALS: BP 106/72
--- NOTE | 2019-01-02 14:20 | NUR ---
Pt discharged at 1420 via wheelchair by caregiver. Pt received discharged teaching and education and signed medicare and discharge paperwork. Tele monitor and IV with cannula intact.
[2019-01-02] MEDS ORDERED: lactobacillus rhamnosus 10,000 MMU CELLS/CAPSULE PO SCH (20:00)
[2019-01-02] MEDS ORDERED: atorvastatin 10mg tablet PO SCH (21:00)
== END 2019-01-02 14:19 | disposition home health service (06) | DRG 871 ==
LOC: ER 16:45 → ED HOLD 20:10 → PCU 3S 20:55
PROVIDERS: ADMIT Internal Medicine; ATTEND Internal Medicine
DX: A41.9 Sepsis, unspecified organism (principal); J18.9 Pneumonia, unspecified organism; J96.01 Acute respiratory failure with hypoxia; J44.0 Chronic obstructive pulmonary disease with (acute) lower respiratory infection; I13.0 Hypertensive heart and chronic kidney disease with heart failure and stage 1 through stage 4 chronic kidney disease, or unspecified chronic kidney disease; J84.10 Pulmonary fibrosis, unspecified; I50.9 Heart failure, unspecified; E11.22 Type 2 diabetes mellitus with diabetic chronic kidney disease; E78.5 Hyperlipidemia, unspecified; E11.42 Type 2 diabetes mellitus with diabetic polyneuropathy; M10.9 Gout, unspecified; I48.0 Paroxysmal atrial fibrillation; N18.3 Chronic kidney disease, stage 3 (moderate); Z95.0 Presence of cardiac pacemaker; Z79.84 Long term (current) use of oral hypoglycemic drugs; Z79.899 Other long term (current) drug therapy; Z87.891 Personal history of nicotine dependence; Z88.0 Allergy status to penicillin
CPT/HCPCS: 36415; 71045; 80053; 81001; 82948; 83036; 83605; 83880; 84145; 84484; 85025; 85610; 85730; 87040; 87081; 93005; 94640; 94760; 96365; 99285; G0378; J0456; J0696; J1815; J2930; J7626

== ENCOUNTER 2019-01-20 07:32 | Emergency (ER) | payer MEDICARE, BC ==
[~2019-01-20] VITALS: Ht 167.6 cm; Wt 102.9 kg
[~2019-01-20 07:32] MED LIST changes: +AMLO2.5T2 PO; +GABA-532 PO; +LEVO750T21 PO; -MONT10TA21 PO
--- NOTE | 2019-01-20 08:15 | NUR ---
Patient ambulated to restroom with steady gait and proper use of walker. Stand by assisted. Urine sample collected and sent to lab.
--- NOTE | 2019-01-20 08:28 | NUR ---
Xray, lab and US at bedside.
[2019-01-20 08:53] LABS: PARTIAL THROMBOPLASTIN TIME 48 SECONDS (22-32)
[2019-01-20 08:58] LABS: ALANINE AMINOTRANSFERASE 28 U/L (12-78); ALBUMIN/GLOBULIN RATIO 0.7 (1.1-1.5); ALKALINE PHOSPHATASE 184 IU/L (46-116); ANION GAP 6 (8-16); ASPARTATE AMINO TRANSFERASE 26 U/L (10-37); BILIRUBIN,TOTAL 0.8 MG/DL (0.1-1.0); BLOOD UREA NITROGEN 17 MG/DL (7-18); BUN/CREATININE RATIO 18.1 (5.4-32.0); CALCIUM 8.8 MG/DL (8.5-10.1); CHLORIDE 98 MMOL/L (99-107); CREATININE 0.94 MG/DL (0.60-1.10); GLUCOSE 135 MG/DL (70-104); POTASSIUM 3.5 MMOL/L (3.5-5.1); SODIUM 139 MMOL/L (135-145); TOTAL CARBON DIOXIDE 34.7 MMOL/L (24-32); TOTAL PROTEIN 7.5 G/DL (6.4-8.2); eGFR 76 ML/MIN
[2019-01-20 09:06] LABS: MAGNESIUM 1.5 MG/DL (1.5-2.4)
[2019-01-20 09:07] LABS: BASOPHILS % (AUTO) 0.7 % (0-1); EOSINOPHILS # (AUTO) 0.2 X10'3 (0-0.9); EOSINOPHILS % (AUTO) 2.9 % (0-6); HEMATOCRIT 32.9 % (42.0-52.0); LYMPHOCYTES # (AUTO) 1.2 X10'3 (1.1-4.8); LYMPHOCYTES % (AUTO) 18.9 % (21-51); MEAN CORPUSCULAR HEMOGLOBIN 31.2 PG (27.0-31.0); MEAN CORPUSCULAR HGB CONC 33.4 g/dL (33.0-36.5); MEAN CORPUSCULAR VOLUME 93.4 FL (78-98); MEAN PLATELET VOLUME 6.7 FL (7.4-10.4); MONOCYTES # (AUTO) 0.8 X10'3 (0-0.9); MONOCYTES % (AUTO) 12.5 % (2-12); NEUTROPHILS # (AUTO) 4.3 X10'3 (1.8-7.7); PLATELET COUNT 197 X10'3 (140-440); RED BLOOD COUNT 3.52 X10'6 (4.70-6.10); RED CELL DISTRIBUTION WIDTH 16.3 % (11.5-14.5); WHITE BLOOD COUNT 6.6 X10'3 (4.5-11.0)
[2019-01-20 09:09] LABS: CLARITY,URINE CLEAR (Clear); COLOR,URINE STRAW (Yellow); GLUCOSE, URINE NEGATIVE (Neg); KETONES,URINE NEGATIVE (Neg); LEUKOCYTE ESTERASE ,URINE NEGATIVE (Neg); NITRITES, URINE NEGATIVE (Neg); OCCULT BLOOD,URINE NEGATIVE (Neg); PH,URINE 7.5 (4.8-8.0); PROTEIN,URINE NEGATIVE (Neg); UROBILINOGEN,URINE 0.2 E.U/dL (0.2-1.0)
[2019-01-20 09:17] LABS: UA COLLECTION TYPE CLN CATCH MIDSTREAM
--- NOTE | 2019-01-20 09:17 | NUR ---
Patient ambulated to restroom with steady gait.
[2019-01-20] MEDS ORDERED: LEVO750T21 PO (09:53)
[2019-01-20 10:01] VITALS: BP 132/73
== END 2019-01-20 10:02 | disposition home or self-care (01) ==
LOC: ER 07:33
DX: N45.1 Epididymitis (principal); N50.89 Other specified disorders of the male genital organs; I50.9 Heart failure, unspecified; I13.10 Hypertensive heart and chronic kidney disease without heart failure, with stage 1 through stage 4 chronic kidney disease, or unspecified chronic kidney disease; E11.22 Type 2 diabetes mellitus with diabetic chronic kidney disease; N18.9 Chronic kidney disease, unspecified; J44.9 Chronic obstructive pulmonary disease, unspecified; Z95.0 Presence of cardiac pacemaker; Z98.890 Other specified postprocedural states; Z87.891 Personal history of nicotine dependence; Z88.0 Allergy status to penicillin; Z79.01 Long term (current) use of anticoagulants; Z79.899 Other long term (current) drug therapy
CPT/HCPCS: 36415; 71045; 76870; 80053; 81003; 83605; 83735; 83880; 84145; 85025; 85610; 85730; 87040; 99284

== ENCOUNTER 2019-03-08 12:26 | Emergency (ER) | payer MEDICARE, BC ==
[~2019-03-08] VITALS: Ht 167.6 cm; Wt 108.2 kg
[~2019-03-08 12:26] MED LIST changes: -LEVO750T21 PO
[2019-03-08 13:22] LABS: BASOPHILS % (AUTO) 0.6 % (0-1); EOSINOPHILS # (AUTO) 0.2 X10'3 (0-0.9); EOSINOPHILS % (AUTO) 2.4 % (0-6); HEMATOCRIT 31.5 % (42.0-52.0); HEMOGLOBIN 10.1 g/dl (14.0-17.9); LYMPHOCYTES # (AUTO) 1.2 X10'3 (1.1-4.8); LYMPHOCYTES % (AUTO) 13.7 % (21-51); MEAN CORPUSCULAR HEMOGLOBIN 29.1 PG (27.0-31.0); MEAN CORPUSCULAR HGB CONC 32.2 g/dL (33.0-36.5); MEAN CORPUSCULAR VOLUME 90.1 FL (78-98); MEAN PLATELET VOLUME 7.6 FL (7.4-10.4); MONOCYTES # (AUTO) 0.9 X10'3 (0-0.9); MONOCYTES % (AUTO) 10.5 % (2-12); NEUTROPHILS # (AUTO) 6.3 X10'3 (1.8-7.7); NEUTROPHILS % (AUTO) 72.8 % (42-75); PLATELET COUNT 193 X10'3 (140-440); RED BLOOD COUNT 3.49 X10'6 (4.70-6.10); RED CELL DISTRIBUTION WIDTH 17.5 % (11.5-14.5); WHITE BLOOD COUNT 8.7 X10'3 (4.5-11.0)
[2019-03-08 13:39] LABS: ALANINE AMINOTRANSFERASE 21 U/L (12-78); ALBUMIN/GLOBULIN RATIO 0.6 (1.1-1.5); ALKALINE PHOSPHATASE 150 IU/L (46-116); ANION GAP 5 (8-16); ASPARTATE AMINO TRANSFERASE 20 U/L (10-37); BILIRUBIN,TOTAL 0.6 MG/DL (0.1-1.0); BLOOD UREA NITROGEN 46 MG/DL (7-18); BUN/CREATININE RATIO 22.9 (5.4-32.0); CALCIUM 8.9 MG/DL (8.5-10.1); CHLORIDE 104 MMOL/L (99-107); CREATININE 2.01 MG/DL (0.60-1.10); GLUCOSE 287 MG/DL (70-104); POTASSIUM 5.1 MMOL/L (3.5-5.1); SODIUM 142 MMOL/L (135-145); TOTAL PROTEIN 7.7 G/DL (6.4-8.2); eGFR 32 ML/MIN
[2019-03-08 14:58] VITALS: BP 106/54
[2019-03-08] MEDS ORDERED: bacitracin 15gm ointment TP ONE (16:05)
== END 2019-03-08 16:49 | disposition home or self-care (01) ==
LOC: ER 12:27
DX: I87.8 Other specified disorders of veins (principal); R06.02 Shortness of breath; G89.29 Other chronic pain; J44.9 Chronic obstructive pulmonary disease, unspecified; I13.10 Hypertensive heart and chronic kidney disease without heart failure, with stage 1 through stage 4 chronic kidney disease, or unspecified chronic kidney disease; E11.22 Type 2 diabetes mellitus with diabetic chronic kidney disease; N18.9 Chronic kidney disease, unspecified; F10.99 Alcohol use, unspecified with unspecified alcohol-induced disorder; Z95.0 Presence of cardiac pacemaker; Z88.0 Allergy status to penicillin; Z79.84 Long term (current) use of oral hypoglycemic drugs; Z79.899 Other long term (current) drug therapy; Y90.9 Presence of alcohol in blood, level not specified
CPT/HCPCS: 36415; 71045; 80053; 83880; 84484; 85025; 93005; 99284